=== PATIENT | female | born 1940 | race Caucasian/White ===

== ENCOUNTER → 2016-12-03 | Outpatient (CLI) | payer MEDICARE ==
[2016-12-03 14:24] LABS: ALT 39 U/L (9-52); AST 37 U/L (14-36); Anion Gap 13 mmol/L; Blood Urea Nitrogen 14 mg/dL (7-17); Calcium 9.7 mg/dL (8.4-10.2); Carbon Dioxide 24 mmol/L (22-30); Chloride 104 mmol/L (98-107); Glucose 157 mg/dL (74-99); Non-African American GFR(MDRD) 56 (>60 ml/min/1.73 sqM); Potassium 4.6 mmol/L (3.5-5.1); Sodium 141 mmol/L (137-145)
[2016-12-03 19:30] LABS: Hemoglobin A1C 6.3 % (4.2-6.1)
== END | disposition home or self-care (01) ==
LOC: LABWHC1 12:51
PROVIDERS: ATTEND Internal Medicine
DX: E11.9 Type 2 diabetes mellitus without complications (principal); E87.8 Other disorders of electrolyte and fluid balance, not elsewhere classified; E78.5 Hyperlipidemia, unspecified; I10 Essential (primary) hypertension
CPT/HCPCS: 36415; 80048; 83036; 84450; 84460

== ENCOUNTER → 2017-09-08 | Outpatient (CLI) | payer MEDICARE ==
[2017-09-08 12:37] LABS: ALT 45 U/L (9-52); AST 35 U/L (14-36); Alkaline Phosphatase 64 U/L (38-126); Anion Gap 11 mmol/L; Blood Urea Nitrogen 18 mg/dL (7-17); Calcium 9.7 mg/dL (8.4-10.2); Carbon Dioxide 24 mmol/L (22-30); Chloride 109 mmol/L (98-107); GGT 47 U/L (12-43); Glucose 155 mg/dL (74-99); Magnesium 2.2 mg/dL (1.6-2.3); Non-African American GFR(MDRD) 54 (>60 ml/min/1.73 sqM); Sodium 144 mmol/L (137-145); Total Bilirubin 0.9 mg/dL (0.2-1.3); Total Protein 6.8 g/dL (6.3-8.2)
== END | disposition home or self-care (01) ==
LOC: LABWHC1 11:23
PROVIDERS: ATTEND Internal Medicine
DX: E55.9 Vitamin D deficiency, unspecified (principal); E11.9 Type 2 diabetes mellitus without complications; M10.9 Gout, unspecified
CPT/HCPCS: 36415; 80053; 82306; 82977; 83036; 83735

== ENCOUNTER → 2018-01-30 | Outpatient (CLI) | payer MEDICARE ==
[2018-01-30 12:57] LABS: Calcium 9.7 mg/dL (8.4-10.2); Potassium 4.1 mmol/L (3.5-5.1)
[2018-01-30 17:19] LABS: Hemoglobin A1C 6.5 % (4.0-6.0)
== END | disposition home or self-care (01) ==
LOC: LABWHC1 12:21
PROVIDERS: ATTEND Internal Medicine
DX: E11.9 Type 2 diabetes mellitus without complications (principal)
CPT/HCPCS: 36415; 80048; 83036

== ENCOUNTER → 2018-02-11 | Outpatient (CLI) | payer MEDICARE ==
--- NOTE | 2018-02-13 09:10 | MM ---
Reason for exam: screening (asymptomatic). Last mammogram was performed 1 year and 5 months ago. History: Patient is postmenopausal. Family history of breast cancer in maternal cousin. Benign right mammotome panel of the right breast, November 17, 2009. Took estrogen for 1 year 6 months. Physical Findings: A clinical breast exam by your physician is recommended on an annual basis and results should be correlated with mammographic findings. MG 3D Screening Mammo W/Cad Bilateral CC and MLO view(s) were taken. Prior study comparison: September 09, 2016, bilateral MG 3d screening mammo w/cad. May 08, 2015, bilateral MG screening mammo w CAD. There are scattered fibroglandular densities. Stable benign calcifications. There is no discrete abnormality. No significant changes when compared with prior studies. ASSESSMENT: Benign, BI-RAD 2 RECOMMENDATION: Routine screening mammogram of both breasts in 1 year.
== END | disposition home or self-care (01) ==
LOC: RADMAMWWP 14:12
PROVIDERS: ATTEND Internal Medicine
DX: Z12.31 Encounter for screening mammogram for malignant neoplasm of breast (principal); Z80.3 Family history of malignant neoplasm of breast
CPT/HCPCS: 77063; 77067

== ENCOUNTER → 2018-06-02 | Outpatient (CLI) | payer MEDICARE ==
[~2018-06-02] MED LIST: REGADENOSON 0.4 MG/5 ML SYRINGE IV ONE
--- NOTE | 2018-06-02 12:50 | NM ---
EXAMINATION TYPE: NM stress lexiscan cardiolite DATE OF EXAM: 06/02/2018 COMPARISON: NONE HISTORY: Chest pain TECHNIQUE: After the intravenous administration of 10.35 mCi Tc 99m Sestamibi - Cardiolite resting S PECT images acquired 45 minutes post injection. The patient received 0.4mg Lexiscan, 23.1 mCi Tc 99m Sestamibi - Stress images obtained [address] injection FINDINGS: Review of stress and rest SPECT images demonstrates no distinct perfusion abnormality. Gated analysi s shows normal wall motion with an estimated left ventricular ejection fraction of 94 %. IMPRESSION: No scintigraphic evidence for reversible ischemia.
--- NOTE | 2018-06-02 13:14 | EST ---
EXERCISE STRESS DATE OF SERVICE: 06/02/2018 AGE: 77 SEX: Female HT: 5'6" WT: 209 pounds PROTOCOL: Lexiscan Cardiolite STAGE: DURATION OF EXERCISE: HEART RATE REST: 90 BLOOD PRESSURE REST: 151/78 MAXIMUM HEART RATE ACHIEVED: 119 MAXIMUM BLOOD PRESSURE: 172/88 85% MPHR: 122 100% MPHR: 143 METS: INDICATIONS: Chest pain. CLINICAL INFORMATION: Baseline rhythm is sinus mechanism, rate of 90, normal axis and intervals nonspecific ST-T wave changes. Baseline blood pressure 151/78 mmHg. Patient received an injection of Lexiscan. Electrocardiographic monitoring revealed no evidence of diagnostic ischemic ST deviation. Cardiolite was injected per protocol. CONCLUSION: 1. Nondiagnostic electrocardiograph stress testing. 2. Nuclear images will be reported separately. MMODL / IJN: [id number] /
== END | disposition home or self-care (01) ==
LOC: RADNMMAIN 09:11
PROVIDERS: ATTEND Internal Medicine
DX: R06.02 Shortness of breath (principal); R07.89 Other chest pain
CPT/HCPCS: 93017; 78452; A9500; J2785

== ENCOUNTER → 2018-06-09 | Outpatient (CLI) | payer MEDICARE ==
--- NOTE | 2018-06-09 14:53 | XR ---
EXAMINATION TYPE: XR chest 2V DATE OF EXAM: 06/09/2018 COMPARISON: 11/26/2013 INDICATION: Short of breath x2 weeks TECHNIQUE: Frontal and lateral views of the chest are obtained. FINDINGS: The heart size is normal. The pulmonary vasculature is normal. The lungs are clear. IMPRESSION: 1. No acute pulmonary process.
== END | disposition home or self-care (01) ==
LOC: RADXRMAIN 14:30
PROVIDERS: ATTEND Internal Medicine
DX: R06.02 Shortness of breath (principal)
CPT/HCPCS: 71046

== ENCOUNTER → 2018-12-07 | Outpatient (CLI) | payer MEDICARE ==
--- NOTE | 2018-12-07 11:13 | XR ---
EXAMINATION TYPE: XR chest 2V DATE OF EXAM: 12/07/2018 COMPARISON: 06/09/2018 TECHNIQUE: PA and lateral views submitted. HISTORY: Cough FINDINGS: The lungs are clear and there is no pneumothorax, pleural effusion, or focal pneumonia. Arthropathy of the shoulders. Heart size normal. Atherosclerotic change aorta. Biapical pleural thickening. No o vert failure. Hypertrophic and degenerative change of the spine. Surgical abdomen. No overt failure. IMPRESSION: 1. No acute process.
[2018-12-07 11:33] LABS: Basophils % (A) 1 %; Eosinophils # (A) 0.2 k/uL (0-0.7); Eosinophils % (A) 4 %; HCT 45.3 % (34.0-46.0); HGB 14.2 gm/dL (11.4-16.0); Lymphocytes # (A) 1.2 k/uL (1.0-4.8); Lymphocytes % (A) 29 %; MCH 29.1 pg (25.0-35.0); MCHC 31.3 g/dL (31.0-37.0); MCV 92.9 fL (80.0-100.0); Mean Platelet Volume 6.9; Monocytes # (A) 0.3 k/uL (0-1.0); Monocytes % (A) 6 %; Neutrophils # (A) 2.4 k/uL (1.3-7.7); Neutrophils % (A) 59 %; Platelet Count 159 k/uL (150-450); RBC 4.88 m/uL (3.80-5.40); WBC 4.1 k/uL (3.8-10.6)
== END | disposition home or self-care (01) ==
LOC: RADXRMAIN 10:34
PROVIDERS: ATTEND Internal Medicine
DX: J40 Bronchitis, not specified as acute or chronic (principal); J11.1 Influenza due to unidentified influenza virus with other respiratory manifestations; J18.9 Pneumonia, unspecified organism
CPT/HCPCS: 36415; 71046; 85025; 87502

== ENCOUNTER → 2019-08-27 | Outpatient (CLI) | payer MEDICARE ==
[2019-08-27 14:39] LABS: Basophils % (A) 1 %; Eosinophils # (A) 0.1 k/uL (0-0.7); Eosinophils % (A) 2 %; HCT 45.5 % (34.0-46.0); HGB 15.1 gm/dL (11.4-16.0); Lymphocytes # (A) 1.7 k/uL (1.0-4.8); Lymphocytes % (A) 31 %; MCHC 33.2 g/dL (31.0-37.0); MCV 93.3 fL (80.0-100.0); Mean Platelet Volume 6.4; Monocytes # (A) 0.3 k/uL (0-1.0); Monocytes % (A) 6 %; Neutrophils # (A) 3.1 k/uL (1.3-7.7); Neutrophils % (A) 58 %; Platelet Count 203 k/uL (150-450); RBC 4.88 m/uL (3.80-5.40); RDW 13.6 % (11.5-15.5); WBC 5.3 k/uL (3.8-10.6)
[2019-08-27 18:26] LABS: African American GFR (CKD) 62.5 (60.0-200.0); Albumin 4.3 g/dL (3.80-4.90); Albumin/Globulin Ratio 2.26 (1.60-3.17); Anion Gap 8.9 mmol/L (4.00-12.00); Calcium 9.3 mg/dL (8.7-10.3); Carbon Dioxide 26.1 mmol/L (21.6-31.8); Globulin 1.9 g/dL (1.6-3.3); Potassium 4.1 mmol/L (3.5-5.5); Total Bilirubin 0.8 mg/dL (0.2-1.2); Total Protein 6.2 g/dL (6.2-8.2)
[2019-08-27 19:21] LABS: Gliadin AB IgA, Deaminated NEGATIVE (NEGATIVE); Gliadin AB IgA, Unit <0.2 U/mL; Gliadin AB IgG, Deaminated NEGATIVE (NEGATIVE)
== END | disposition home or self-care (01) ==
LOC: LABWHC1 13:54
PROVIDERS: ATTEND Internal Medicine
DX: R10.9 Unspecified abdominal pain (principal)
CPT/HCPCS: 36415; 80053; 82150; 83516; 83690; 85025

== ENCOUNTER → 2020-03-24 | Outpatient (CLI) | payer MEDICARE ==
[2020-03-24 12:58] LABS: Basophils # (A) 0.1 k/uL (0-0.2); Basophils % (A) 1 %; Eosinophils # (A) 0.2 k/uL (0-0.7); Eosinophils % (A) 3 %; HGB 14.1 gm/dL (11.4-16.0); Lymphocytes # (A) 1.7 k/uL (1.0-4.8); Lymphocytes % (A) 31 %; MCH 29.4 pg (25.0-35.0); MCHC 31.3 g/dL (31.0-37.0); MCV 93.8 fL (80.0-100.0); Mean Platelet Volume 8.9; Monocytes # (A) 0.3 k/uL (0-1.0); Monocytes % (A) 6 %; Neutrophils # (A) 3.2 k/uL (1.3-7.7); Neutrophils % (A) 57 %; Platelet Count 176 k/uL (150-450); RDW 13.5 % (11.5-15.5); WBC 5.6 k/uL (3.8-10.6)
[2020-03-24 13:47] LABS: Erythrocyte Sedimentation Rate 11 mm/hr (0-20)
[2020-03-24 18:46] LABS: African American GFR (CKD) 49.8 (60.0-200.0); Albumin 4.2 g/dL (3.80-4.90); Albumin/Globulin Ratio 2.1 (1.60-3.17); Anion Gap 9.6 mmol/L (4.00-12.00); BUN/Creat Ratio 20.83 Ratio (12.00-20.00); C Reactive Protein 0.7 mg/dL (0.0-0.8); Calcium 9.4 mg/dL (8.7-10.3); Carbon Dioxide 28.4 mmol/L (21.6-31.8); Chol/HDL Ratio 4.5; LDL Cholesterol,Calculated 68.2 mg/dL (0.0-131.0); Non-African American GFR(CKD) 42.9 (60.0-200.0); Potassium 4.4 mmol/L (3.5-5.5); Total Bilirubin 0.9 mg/dL (0.3-1.2); Total Protein 6.2 g/dL (6.2-8.2); VLDL Calculation 78.8 mg/dL (5.00-40.00)
[2020-03-24 19:53] LABS: Hemoglobin A1C 7.7 % (4.0-6.0)
== END | disposition home or self-care (01) ==
LOC: LABWHC1 12:13
PROVIDERS: ATTEND Internal Medicine
DX: D64.9 Anemia, unspecified (principal); I10 Essential (primary) hypertension; E78.5 Hyperlipidemia, unspecified; E11.65 Type 2 diabetes mellitus with hyperglycemia; E55.9 Vitamin D deficiency, unspecified; J45.909 Unspecified asthma, uncomplicated
CPT/HCPCS: 36415; 80053; 80061; 82306; 82550; 83036; 84443; 85025; 85652; 86140

== ENCOUNTER 2020-06-20 06:44 | Day surgery (SDC) | payer MEDICARE ==
[2020-06-15 16:26] VITALS: BMI 31.3
[~2020-06-20 06:44] MED LIST changes: +LACTATED RINGERS 1,000 ML IV SCH; +LIDOCAINE 1% (10MG/ML) FOR IV START INTRADERMA PRN; -REGADENOSON 0.4 MG/5 ML SYRINGE IV ONE
[2020-06-20 07:07] VITALS: TEMP 97.4
[2020-06-20 07:23] LABS: Glucose,Whole Blood 223 mg/dL (75-99)
[2020-06-20] MEDS ORDERED: ONDANSETRON 4 MG/2 ML VIAL ONE (07:24)
[2020-06-20] MEDS ORDERED: PROPOFOL 10 MG/ML 20 ML VIAL IV ONE (07:35)
[2020-06-20] MEDS ORDERED: LIDOCAINE 1% INJ 10MG/ML (20 ML MDV) ONE (07:35)
[2020-06-20 08:02] VITALS: RESP 18
--- NOTE | 2020-06-20 08:04 | P.PCN ---
Date of Procedure: 06/20/20 Description of Procedure: BRIEF HISTORY: Patient is a 79-year-old female presenting for outpatient EGD for evaluation of GERD and abdominal pain. Patient had Protonix increased to twice daily. In addition when seen outpatient setting she was given dietary modifications as well as initiated on MiraLAX therapy. PROCEDURE PERFORMED: Esophagogastroduodenoscopy with biopsy. PREOPERATIVE DIAGNOSIS: GERD. ESTIMATED BLOOD LOSS: Minimal. IV sedation per anesthesia. PROCEDURE: After informed consent was obtained, the patient was brought into the endoscopy unit. IV sedation was administered by Anesthesia under continuous monitoring. Initially the Olympus GIF-190 video endoscope was inserted into the mouth. Esophagus intubated without any difficulty. It was gradually advanced into the stomach and duodenum and carefully examined. The bulb and the second part of the duodenum appeared normal, with biopsies taken. The scope at this time was withdrawn to the stomach, adequately insufflated with air, and upon careful examination, mucosa of the antrum, body, cardia and the fundus appeared normal grossly normal except for some mild scattered erythema suggestive of mild gastritis with biopsies of the antrum and body taken. There was small amount food noted throughout the entire stomach prohibiting complete visualization of the mucosa. The scope was then withdrawn into the esophagus. The GE junction was located at 39 cm from the incisors, with biopsies taken. The midesophagus was also biopsied to rule out eosinophilic esophagitis. The esophagus appeared normal. There were no erosions or ulcerations seen and the patient tolerated the procedure well. IMPRESSION: 1. Mild gastritis. 2. Small amounts of retained food debris in the stomach. 3. Biopsies of the duodenum, antrum body, GE junction and mid esophagus. RECOMMENDATIONS: The findings of this examination were discussed with the patient. Okay to resume diet. Okay to resume medications. Continue PPI therapy. Await pathology from biopsies. Follow up in GI clinic as previously scheduled.
[2020-06-20 08:14] VITALS: BP 105/52; PULSE 68
== END 2020-06-20 08:33 | disposition home or self-care (01) ==
LOC: ORWHC2ENDO 06:44
PROVIDERS: ATTEND Internal Medicine
DX: K29.50 Unspecified chronic gastritis without bleeding (principal); K21.9 Gastro-esophageal reflux disease without esophagitis; Z88.2 Allergy status to sulfonamides; Z88.0 Allergy status to penicillin; Z88.8 Allergy status to other drugs, medicaments and biological substances; I10 Essential (primary) hypertension; E78.5 Hyperlipidemia, unspecified; E11.9 Type 2 diabetes mellitus without complications; G43.909 Migraine, unspecified, not intractable, without status migrainosus; Z79.82 Long term (current) use of aspirin; Z79.899 Other long term (current) drug therapy; Z90.49 Acquired absence of other specified parts of digestive tract; Z90.89 Acquired absence of other organs; Z98.41 Cataract extraction status, right eye; Z98.42 Cataract extraction status, left eye
CPT/HCPCS: 88305; 43239; J2405; J2001; J2704

== ENCOUNTER → 2020-11-14 | Outpatient (CLI) | payer MEDICARE ==
[2020-11-14 19:53] LABS: African American GFR (CKD) 55.3 (60.0-200.0); Albumin 4.4 g/dL (3.80-4.90); Albumin/Globulin Ratio 2.44 (1.60-3.17); Anion Gap 10.3 mmol/L (4.00-12.00); BUN/Creat Ratio 16.36 Ratio (12.00-20.00); Calcium 9.5 mg/dL (8.7-10.3); Carbon Dioxide 25.7 mmol/L (21.6-31.8); Chol/HDL Ratio 4.41; Globulin 1.8 g/dL (1.6-3.3); LDL Cholesterol,Calculated 80.8 mg/dL (0.0-131.0); Non-African American GFR(CKD) 47.7 (60.0-200.0); Potassium 4.6 mmol/L (3.5-5.5); Total Protein 6.2 g/dL (6.2-8.2); VLDL Calculation 69.2 mg/dL (5.00-40.00)
[2020-11-14 22:09] LABS: Hemoglobin A1C 8.1 % (4.0-6.0)
[2020-11-15 03:44] LABS: Urine Creatinine 246.8 mg/dL
== END | disposition home or self-care (01) ==
LOC: LABWHC1 13:07
PROVIDERS: ATTEND Internal Medicine Endocrinology, Diabetes & Metabolism
DX: E11.65 Type 2 diabetes mellitus with hyperglycemia (principal)
CPT/HCPCS: 36415; 80053; 80061; 82043; 82570; 83036; 84443

== ENCOUNTER → 2021-07-16 | Outpatient (CLI) | payer MEDICARE ==
[2021-07-16 18:53] LABS: Basophils # (A) 0.04 X 10*3/uL (0.00-0.10); Basophils % (A) 0.7 %; Eosinophils # (A) 0.12 X 10*3/uL (0.04-0.35); HGB 14.7 g/dL (12.0-15.0); Lymphocytes # (A) 1.77 X 10*3/uL (0.90-5.00); Lymphocytes % (A) 29.8 %; MCH 30.2 pg (27.0-32.0); MCV 94.7 fL (80.0-97.0); Monocytes # (A) 0.48 X 10*3/uL (0.20-1.00); Monocytes % (A) 8.1 %; Neutrophils # (A) 3.52 X 10*3/uL (1.80-7.70); Neutrophils % (A) 59.2 %; Platelet Count 183 X 10*3/uL (140-440); RBC 4.86 X 10*6/uL (4.10-5.20); RDW 13.5 % (11.5-14.5); WBC 5.94 X 10*3/uL (4.50-10.00)
[2021-07-16 21:18] LABS: Erythrocyte Sedimentation Rate 9 mm/Hr (0-30)
[2021-07-17 22:46] LABS: C Reactive Protein 0.5 mg/dL (0.00-0.80); Chol/HDL Ratio 4.61 Ratio; HDL Cholesterol 45.3 mg/dL (40.00-60.00); LDL Cholesterol,Calculated 89.1 mg/dL (0.0-131.0); Uric Acid 4.4 mg/dL (2.9-7.7); VLDL Calculation 74.6 mg/dL (5.00-40.00)
[2021-07-18 07:39] LABS: African American GFR (CKD) 88.7 (60.0-200.0); Albumin 4.3 g/dL (3.8-4.9); Albumin/Globulin Ratio 1.92 (1.60-3.17); Anion Gap 18.8 mmol/L (4.00-12.00); BUN/Creat Ratio 27.43 Ratio (12.00-20.00); Blood Urea Nitrogen 20.3 mg/dL (9.0-27.0); Calcium 9.9 mg/dL (8.7-10.3); Carbon Dioxide 20.2 mmol/L (21.6-31.8); Globulin 2.2 g/dL (1.6-3.3); Non-African American GFR(CKD) 76.5 (60.0-200.0); Potassium 4.3 mmol/L (3.5-5.5); Total Bilirubin 0.5 mg/dL (0.30-1.20); Total Protein 6.5 g/dL (6.2-8.2)
[2021-07-18 11:15] LABS: Microalbumin Creatinine Ratio <30 mg/g Creat (0-30)
== END | disposition home or self-care (01) ==
LOC: LABWHC1 14:02
PROVIDERS: ATTEND Internal Medicine Endocrinology, Diabetes & Metabolism
DX: Z00.00 Encounter for general adult medical examination without abnormal findings (principal); E78.5 Hyperlipidemia, unspecified; E03.9 Hypothyroidism, unspecified; E55.9 Vitamin D deficiency, unspecified; E11.22 Type 2 diabetes mellitus with diabetic chronic kidney disease; E11.65 Type 2 diabetes mellitus with hyperglycemia; D63.1 Anemia in chronic kidney disease; M10.9 Gout, unspecified; N18.30 Chronic kidney disease, stage 3 unspecified
CPT/HCPCS: 36415; 80053; 80061; 82043; 82306; 82550; 82570; 83036; 83735; 84443; 84550; 85025; 85652; 86140

== ENCOUNTER → 2022-05-28 | Outpatient (CLI) | payer MEDICARE ==
[2022-05-28 18:41] LABS: ALT 15 U/L (8-44); AST 24 U/L (13-35); African American GFR (CKD) 40.7 (60.0-200.0); Albumin 4.3 g/dL (3.8-4.9); Albumin/Globulin Ratio 1.59 (1.60-3.17); Alkaline Phosphatase 50 U/L (41-126); BUN/Creat Ratio 19.36 Ratio (12.00-20.00); Blood Urea Nitrogen 27.1 mg/dL (9.0-27.0); Calcium 9.6 mg/dL (8.7-10.3); Carbon Dioxide 23.4 mmol/L (20.0-27.5); Chloride 102 mmol/L (96-109); Chol/HDL Ratio 2.64 Ratio; Globulin 2.7 g/dL (1.6-3.3); Glucose 184 mg/dL (70-110); LDL Cholesterol,Calculated 37.1 mg/dL (0.0-131.0); Non-African American GFR(CKD) 35.1 (60.0-200.0); Potassium 2.9 mmol/L (3.5-5.5); Sodium 143 mmol/L (135-145)
== END | disposition home or self-care (01) ==
LOC: LABWHC1 13:54
PROVIDERS: ATTEND Internal Medicine Endocrinology, Diabetes & Metabolism
DX: E11.65 Type 2 diabetes mellitus with hyperglycemia (principal)
CPT/HCPCS: 36415; 80053; 80061; 82043; 82570; 83036; 84443

== ENCOUNTER → 2022-06-18 | Outpatient (CLI) | payer MEDICARE ==
--- NOTE | 2022-06-20 21:26 | US ---
EXAMINATION TYPE: US kidneys/renal and bladder DATE OF EXAM: 06/19/2022 COMPARISON: NONE CLINICAL HISTORY: N28.9 KNOWN RENAL DISEASE CKD III. CKD EXAM MEASUREMENTS: Right Kidney: 11.0 x 5.4 x 5.2 cm Left Kidney: 10.8 x 4.8 x 4.2 cm Right Kidney: no evidence of hydronephrosis. cortical thinning Left Kidney: no evidence of hydronephrosis. cortical thinning Bladder: wnl, sonolucent Bilateral Jets seen: no IMPRESSION: 1. No acute changes renal ultrasound
== END | disposition home or self-care (01) ==
LOC: RADUSWWP 21:26
PROVIDERS: ATTEND Internal Medicine
DX: N18.30 Chronic kidney disease, stage 3 unspecified (principal); N28.9 Disorder of kidney and ureter, unspecified
CPT/HCPCS: 76770

== ENCOUNTER → 2022-06-18 | Outpatient (CLI) | payer MEDICARE ==
--- NOTE | 2022-06-20 21:37 | XR ---
Lumbar spine HISTORY: Disc disease 3 views the lumbar spine, no comparisons There is a dextroscoliosis centered at the mid lumbar spine with rotatory component. Bone mineralizat ion is reduced. Lumbar vertebral bodies show preserved height. There is multilevel spondylosis. Loss of disc height is present at intervertebral levels at T12-L1, L1-2, L2-3 and L3-4. Sclerosis in the p osterior elements is consistent with facet arthropathy. Sacroiliac joints are intact. Surgical clips are present in the right upper quadrant. IMPRESSION: Osteopenia, scoliosis, degenerative disc disease and facet arthropathy.
--- NOTE | 2022-06-20 21:39 | XR ---
EXAMINATION TYPE: XR chest 2V DATE OF EXAM: 06/19/2022 COMPARISON: Chest x-ray 12/07/2018 HISTORY: Shortness of breath TECHNIQUE: Frontal and lateral views of the chest are obtained. FINDINGS: There is no focal air space opacity, pleural effusion, or pneumothorax seen. The cardiac silhouette size is within normal limits. Prominent lung volume could be indicative of underlying COPD . Aorta is dense. Surgical clips are present in the right upper quadrant. The osseous structures are intact. IMPRESSION: No acute cardiopulmonary process.
== END | disposition home or self-care (01) ==
LOC: RADXRMAIN 14:30
PROVIDERS: ATTEND Internal Medicine
DX: M51.36 Other intervertebral disc degeneration, lumbar region (principal); M47.816 Spondylosis without myelopathy or radiculopathy, lumbar region; M85.88 Other specified disorders of bone density and structure, other site; M41.86 Other forms of scoliosis, lumbar region; R06.02 Shortness of breath
CPT/HCPCS: 71046; 72100

== ENCOUNTER → 2022-06-21 | Outpatient (CLI) | payer MEDICARE ==
[2022-06-21 22:45] LABS: African American GFR (CKD) 44.6 (60.0-200.0); BUN/Creat Ratio 17.15 Ratio (12.00-20.00); Blood Urea Nitrogen 22.3 mg/dL (9.0-27.0); Calcium 9.9 mg/dL (8.7-10.3); Non-African American GFR(CKD) 38.4 (60.0-200.0); Potassium 4.1 mmol/L (3.5-5.5)
== END | disposition home or self-care (01) ==
LOC: LABWHC1 14:53
PROVIDERS: ATTEND Internal Medicine
DX: E87.8 Other disorders of electrolyte and fluid balance, not elsewhere classified (principal); E87.6 Hypokalemia
CPT/HCPCS: 36415; 80048

== ENCOUNTER → 2022-07-18 | Outpatient (CLI) | payer MEDICARE ==
--- NOTE | 2022-07-18 16:49 | CT ---
EXAMINATION TYPE: CT brain wo con DATE OF EXAM: 07/18/2022 HISTORY: DIZZINESS AND FEELING OF FALLING. CT DLP: 1213 mGycm. Automated Exposure Control for Dose Reduction was Utilized. TECHNIQUE: CT scan of the head is performed without contrast. COMPARISON: None. FINDINGS: There is no acute intracranial hemorrhage or midline shift identified. There is mild diff use ventricular and sulcal prominence consistent with diffuse age-related cerebral atrophy. Sulcal pr ominence greatest over the bilateral superior frontal lobes. Alejo-white matter differentiation fairly well-maintained. No suspicious opacification of the mastoid air cells. Hyperostosis frontalis is see n. The globes are intact and the visualized sinuses are clear. IMPRESSION: No acute intracranial hemorrhage or midline shift. There is mild to moderate diffuse ce rebral atrophy greatest over the bilateral superior frontal lobes.
[2022-07-19 00:12] LABS: Rheumatoid Factor, Qnt <10 IU/mL (0-15)
[2022-07-19 00:14] LABS: Protein, Total 6.4 g/dL (6.2-8.2)
[2022-07-19 01:07] LABS: Basophils # (A) 0.02 X 10*3/uL (0.00-0.10); Basophils % (A) 0.4 %; Eosinophils # (A) 0.07 X 10*3/uL (0.04-0.35); Eosinophils % (A) 1.3 %; HCT 46.2 % (37.2-46.3); HGB 14.3 g/dL (12.0-15.0); Immature Grans, Automated 0.2 %; Lymphocytes # (A) 1.85 X 10*3/uL (0.90-5.00); Lymphocytes % (A) 33.8 %; MCH 29.6 pg (27.0-32.0); MCV 95.7 fL (80.0-97.0); Mean Platelet Volume 11.7 fL (9.5-12.2); Monocytes # (A) 0.35 X 10*3/uL (0.20-1.00); Monocytes % (A) 6.4 %; NRBC Per 100 WBC 0 /100 WBCS (0.0-0.0); Neutrophils # (A) 3.17 X 10*3/uL (1.80-7.70); Neutrophils % (A) 57.9 %; Platelet Count 180 X 10*3/uL (140-440); RBC 4.83 X 10*6/uL (4.10-5.20); RDW 15.4 % (11.5-14.5); WBC 5.47 X 10*3/uL (4.50-10.00)
[2022-07-19 01:30] LABS: Erythrocyte Sedimentation Rate 7 mm/Hr (0-30)
[2022-07-19 10:24] LABS: Anti-Smith Ab Interp NEGATIVE (NEGATIVE); Cyclic Citrull Pep IgG Unit <0.5 U/mL; Cyclic Citrullinated Pep IgG NEGATIVE (NEGATIVE); DNA Double-Stranded NEGATIVE (NEGATIVE)
[2022-07-19 12:33] LABS: Albumin 3.82 g/dL (3.80-4.90); Gamma Globulin 0.64 g/dL (0.70-1.50)
[2022-07-19 14:27] LABS: C-ANCA <1:20 Titer (<1:20)
== END | disposition home or self-care (01) ==
LOC: RADCTMAIN 15:38
PROVIDERS: ATTEND Internal Medicine
DX: G31.9 Degenerative disease of nervous system, unspecified (principal); R26.9 Unspecified abnormalities of gait and mobility; M35.9 Systemic involvement of connective tissue, unspecified; R26.89 Other abnormalities of gait and mobility; R21 Rash and other nonspecific skin eruption
CPT/HCPCS: 70450; 84165; 85025; 85652; 86038; 86039; 86160; 86162; 86200; 86225; 86235; 86255; 86334; 86335; 86431

== ENCOUNTER → 2022-08-06 | Outpatient (CLI) | payer MEDICARE ==
--- NOTE | 2022-08-07 11:50 | CA ---
Transthoracic Echo Report Name: Lesvia Matos Age: 81 Gender: F : 1940 Exam Date: 08/06/2022 13:51 Exam Location: [facility] Ht (in): 67 Wt (lb): 190 Ordering Physician: Everett Ortiz MD Attending/Referring Phys: Recreation Professor Violeta Rodney RDCS Procedure CPT: Indications: I10 HYPERTENSION, N18.30 Cardiac Hx: Technical Quality: Technically difficult study Contrast 1: Lumason Total Dose (mL): 5 Contrast 2: Total Dose (mL): MEASUREMENTS (Male / Female) Normal Values 2D ECHO LV Diastolic Diameter PLAX 3.0 cm 4.2 - 5.9 / 3.9 - 5.3 cm LV Systolic Diameter PLAX 1.9 cm IVS Diastolic Thickness 1.0 cm 0.6 - 1.0 / 0.6 - 0.9 cm LVPW Diastolic Thickness 1.1 cm 0.6 - 1.0 / 0.6 - 0.9 cm LV Relative Wall Thickness 0.7 LA Volume 27.3 cm??? 18 - 58 / 22 - 52 cm??? DOPPLER AV Peak Velocity 127.1 cm/s AV Peak Gradient 6.5 mmHg LVOT Peak Velocity 134.6 cm/s LVOT Peak Gradient 7.2 mmHg MV Area PHT 3.7 cm??? Mitral E Point Velocity 58.9 cm/s Mitral A Point Velocity 132.7 cm/s Mitral E to A Ratio 0.4 MV Deceleration Time 205.2 ms MV E' Velocity 6.2 cm/s Mitral E to MV E' Ratio 9.5 TR Peak Velocity 200.5 cm/s TR Peak Gradient 16.1 mmHg Right Ventricular Systolic Press 21.1 mmHg FINDINGS Left Ventricle Mildly increased left ventricular wall thickness. Normal left ventricular systolic function with no obvious regional wall motion abnormalities. Left ventricular ejection fraction is estimated at 55-60 %. Right Ventricle Moderate right ventricular dilatation. Right ventricular systolic pressure within normal limits. Right Atrium Right atrium not well visualized. Left Atrium Normal left atrial size. Mitral Valve No mitral stenosis. Mild mitral regurgitation. Mitral annular calcification. Aortic Valve Aortic valve not well visualized. No aortic valve stenosis or regurgitation. Tricuspid Valve Mild tricuspid regurgitation. Pulmonic Valve Pulmonic valve not well visualized. Pericardium No pericardial effusion. Aorta Normal size aortic root and proximal ascending aorta. CONCLUSIONS Patient tachycardic Normal LV systolic function RV is enlarged, mildly Previewed by: Dr. Luis Daniel Reagan MD (Electronically Signed) Final Date: 07 August 2022 11:50
== END | disposition home or self-care (01) ==
LOC: RADECHMAIN 13:36
PROVIDERS: ATTEND Internal Medicine
DX: I10 Essential (primary) hypertension (principal); N18.30 Chronic kidney disease, stage 3 unspecified
CPT/HCPCS: C8929; Q9950; 93306

== ENCOUNTER 2022-09-13 13:16 | Observation (INO) | payer MEDICARE ==
[2022-09-13 15:49] LABS: Basophils # (A) 0.1 k/uL (0-0.2); Basophils % (A) 1 %; Eosinophils # (A) 0.1 k/uL (0-0.7); Eosinophils % (A) 1 %; HCT 43.2 % (34.0-46.0); HGB 14.6 gm/dL (11.4-16.0); Lymphocytes # (A) 1.6 k/uL (1.0-4.8); Lymphocytes % (A) 25 %; MCHC 33.9 g/dL (31.0-37.0); MCV 91.4 fL (80.0-100.0); Mean Platelet Volume 9.2; Monocytes # (A) 0.4 k/uL (0-1.0); Monocytes % (A) 6 %; Neutrophils % (A) 64 %; Platelet Count 153 k/uL (150-450); RBC 4.72 m/uL (3.80-5.40); RDW 14.2 % (11.5-15.5); WBC 6.3 k/uL (3.8-10.6)
[2022-09-13 15:58] LABS: Partial Thromboplastin Time 24.3 sec (22.0-30.0); Prothrombin Time 10.2 sec (9.0-12.0)
[2022-09-13 15:59] LABS: Albumin 4.1 g/dL (3.5-5.0); Calcium 8.8 mg/dL (8.4-10.2); Potassium 3.9 mmol/L (3.5-5.1); Total Bilirubin 0.8 mg/dL (0.2-1.3); Total Protein 6.4 g/dL (6.3-8.2)
[2022-09-13] MEDS ORDERED: ASPIRIN 81 MG PO STA (18:52)
--- NOTE | 2022-09-13 19:29 | XR ---
EXAMINATION TYPE: XR chest 2V DATE OF EXAM: 09/13/2022 COMPARISON: 06/18/2022 HISTORY: Chest pain. Short of breath. TECHNIQUE: 2 views FINDINGS: There is no heart failure nor confluent pneumonic infiltrate. Heart and mediastinum are nor mal. No pleural effusion. Bony thorax is intact. IMPRESSION: No active cardiopulmonary disease. No change.
[2022-09-13 19:39] VITALS: RESP 16
[2022-09-13] MEDS ORDERED: NALOXONE 0.4 MG/ML 1 ML VIAL IV PRN (20:09)
--- NOTE | 2022-09-13 20:09 | ED ---
General Adult HPI - General Chief complaint: Arrhythmia/Palpitations Stated complaint: tachycardia, sob Time Seen by Provider: 09/13/22 18:31 Source: patient, RN notes reviewed, old records reviewed Mode of arrival: ambulatory Limitations: no limitations - History of Present Illness Initial comments: Patient is an 81-year-old female with past medical history remarkable for hypertension, GERD, cancer who presents emergency Department complaining of an episode of lightheadedness/dizziness this morning with an elevated heart rate. States her heart rate was between 140 and 160 at home based on pulse oximeter and the run able to detect blood pressure this morning with automatic blood pressure cuff at home. She states she was just resting comfortably when she suddenly had this episode. She has been having intermittent episodes like this over the last few weeks and has been seeing cardiology outpatient but is not due to see them again for multiple weeks. Has not been placed on a Holter monitor. States she felt palpitations during the episode but no chest pain. Symptoms resolved by the time she got here in the was a long delay and evaluated the patient due to high ED volumes. Denies any cough or fevers. Does endorse some mild chronic lower extremity edema. Denies any chest pain or current symptoms at this time. She states she has been having these symptoms more frequently lately. Describes some is near syncopal where she becomes lightheaded, needs to sit down has a warm flushed feeling with palpitations. It is not always asso ciated with low blood pressure or high heart rate because she does not always check it but today's was. She states they're more frequent over the last week or so after having an for the last 6 weeks on and off. No known palliative or provocative factors. Presents for further evaluation at this time. No cardiac history. No history of blood clots. Not on blood thinners.Patient states that when she is having episodes she does feel short of breath. - Related Data Home Medications Medication Instructions Recorded Confirmed ALPRAZolam [Xanax] 0.25 mg PO BID PRN 06/15/20 09/13/22 Aspirin 81 mg PO W/SUPPER 06/15/20 09/13/22 Cholecalciferol [Vitamin D3 (25 50 mcg PO DAILY 06/15/20 09/13/22 Mcg = 1000 Iu)] Glimepiride [Amaryl] 2 mg PO BID-W/MEALS 06/15/20 09/13/22 Melatonin [Melatonin ER] 10 mg PO HS 06/15/20 09/13/22 Metoprolol Succinate (ER) [Toprol 50 mg PO DAILY 06/15/20 09/13/22 Xl] Naproxen Sodium [Aleve] 220 mg PO Q12H PRN 06/15/20 09/13/22 Pantoprazole Sodium [Protonix] 40 mg PO BID-W/MEALS 06/15/20 09/13/22 Triamterene-Hctz 37.5-25Mg 0.5 tab PO DAILY PRN 06/15/20 09/13/22 [Maxzide 37.5-25] polyethylene glycoL 3350 [Miralax] 17 gm PO DAILY PRN 06/15/20 09/13/22 Calcium Carbonate [Calcium] 600 mg PO DAILY 09/13/22 09/13/22 Fish Oil 1400mg 1 cap PO DAILY 09/13/22 09/13/22 Ipratropium [place] [Ipratropium 1 spray EA NOSTRIL BID 09/13/22 09/13/22 [place] 0.03%] Multivit-Min/FA/Lycopen/Lutein 1 tab PO DAILY 09/13/22 09/13/22 [Centrum Silver Tablet] Rosuvastatin Calcium [Crestor] 40 mg PO HS 09/13/22 09/13/22 Allergies Allergy/AdvReac Type Severity Reaction Status Date / Time amoxicillin [From Augmentin] Allergy Diarrhea Verified 09/13/22 20:19 clavulanic acid Allergy Diarrhea Verified 09/13/22 20:19 [From Augmentin] fenofibrate Allergy Nausea, Verified 09/13/22 20:19 HEADACHE linagliptin [From Tradjenta] Allergy Itching Verified 09/13/22 20:19 metformin [From Janumet] Allergy DIZZY Verified 09/13/22 20:19 FEELING" sitagliptin [From Januvia] Allergy DIZZY Verified 09/13/22 20:19 FEELING Sulfa (Sulfonamide Allergy Swelling Verified 09/13/22 20:19 Antibiotics) telmisartan [From Micardis] Allergy DIZZY Verified 09/13/22 20:19 Review of Systems ROS Statement: Those systems with pertinent positive or pertinent negative responses have been documented in the HPI. Review of Systems: CONST: Denies fever EYES: Denies blurry vision ENT: Denies nasal congestion C/V: Denies Chest pain RESP: Denies shortness of breath GI: Denies abdominal pain : Denies dysuria SKIN: Denies rash. MSK: Denies joint pain. NEURO: Denies headache ROS Other: All systems not noted in ROS Statement are negative. Past Medical History Past Medical History: Cancer, GERD/Reflux, Hyperlipidemia, Hypertension Additional Past Medical History / Comment(s): MIGRAINE HEADACHES, SKIN CANCER History of Any Multi-Drug Resistant Organisms: None Reported Past Surgical History: Cholecystectomy, Hysterectomy, Tonsillectomy Additional Past Surgical History / Comment(s): CATARACT WITH LENS IMPLANTS-TAMIA ATERAL, BILATERAL EYE LID SURGERY, LESION REMOVED FROM LEFT ARM Past Anesthesia/Blood Transfusion Reactions: Postoperative Nausea & Vomiting (PONV) Past Psychological History: Anxiety, Depression Smoking Status: Never smoker Past Alcohol Use History: None Reported Past Drug Use History: None Reported - Past Family History Mother Family Medical History: No Reported History General Exam - General Exam Comments Initial Comments: General: Appears in no acute distress. HEAD: Normal with no signs of head trauma. EYES: PERRLA, EOMI, conjunctiva normal, no discharge. ENT: Hearing grossly intact, normal oropharynx. RESPIRATORY: Clear breath sounds bilaterally. No wheezes, rales, or rhonchi. No respiratory distress. No hypoxia. C/V: Regular rate and rhythm. S1 and S2 auscultated, no edema, peripheral pulses 2+ and intact throughout ABD: Abd is soft, nontender, nondistended EXT: Normal range of motion, no obvious deformity SKIN: No rashes or lesions observed on exposed skin. NEURO: Alert and oriented 4. Limitations: no limitations Course Vital Signs 09/13/22 09/13/22 13:36 19:37 Temperature 98.5 F Pulse Rate 103 H 88 Pulse Rate [ 88 Apical] Respiratory 20 16 Rate Blood Pressure 144/90 134/77 O2 Sat by Pulse 99 98 Oximetry Medical Decision Making - Medical Decision Making Based on the patient's presentation and physical exam, and appears she is having near syncopal episodes of possible arrhythmias at home intermittently that of been more frequent over the last few months. I'm concerned for possible cardiac etiology at this time including arrhythmia, ACS. Cannot rule out PE at this time either. She is currently asymptomatic. 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 Patient's vital signs within acceptable limits. We will obtain cardiac labs. She was in agreement with this plan. She was given an aspirin. EKG showed no signs of acute ischemia. Chest x-ray as interpreted by myself reveals no acute cardio primary process. No infiltrate. Laboratory studies are remarkable for an initial indeterminate troponin. Patient was evaluated after the initial laboratory studies and we will obtain repeat 3 hour troponin addition to d-dimer and BNP. She was in agreement this plan. BNP was within acceptable limits for the patient's age. Repeat troponin was once again indeterminant but slightly higher at 0.016. Patient's age-adjusted d-dimer is within acceptable limits. On reevaluation, patient remains asymptomatic. She is not due to follow-up with a automotive instructor for multiple weeks and her having any symptoms, as well as a noted tachycardia at home on pulse ox, I recommended observation admission to a telemetry bed for monitoring. She was in agreement with this plan. I did speak with the patient's PCP admitting doctor, Dr. Ortiz who accepted the admission. Cardiology was consulted. Echo was ordered. - Lab Data Result diagrams: 09/13/22 15:25 09/13/22 15:25 Lab Results 09/13/22 09/13/22 09/13/22 Range/Units 15:25 15:25 15:25 WBC 6.3 (3.8-10.6) k/uL RBC 4.72 (3.80-5.40) m/uL Hgb 14.6 (11.4-16.0) gm/dL Hct 43.2 (34.0-46.0) % MCV 91.4 (80.0-100.0) fL MCH 31.0 (25.0-35.0) pg MCHC 33.9 (31.0-37.0) g/dL RDW 14.2 (11.5-15.5) % Plt Count 153 (150-450) k/uL MPV 9.2 Neutrophils % 64 % Lymphocytes % 25 % Monocytes % 6 % Eosinophils % 1 % Basophils % 1 % Neutrophils # 4.0 (1.3-7.7) k/uL Lymphocytes # 1.6 (1.0-4.8) k/uL Monocytes # 0.4 (0-1.0) k/uL Eosinophils # 0.1 (0-0.7) k/uL Basophils # 0.1 (0-0.2) k/uL PT 10.2 (9.0-12.0) sec INR 1.0 (<1.2) APTT 24.3 (22.0-30.0) sec D-Dimer (<0.60) mg/L FEU Sodium 140 (137-145) mmol/L Potassium 3.9 (3.5-5.1) mmol/L Chloride 111 H (98-107) mmol/L Carbon Dioxide 19 L (22-30) mmol/L Anion Gap 10 mmol/L BUN 20 H (7-17) mg/dL Creatinine 1.07 H (0.52-1.04) mg/dL Est GFR (CKD-EPI)AfAm 57 (>60 ml/min/1.73 sqM) Est GFR (CKD-EPI)NonAf 49 (>60 ml/min/1.73 sqM) Glucose 265 H (74-99) mg/dL Calcium 8.8 (8.4-10.2) mg/dL Total Bilirubin 0.8 (0.2-1.3) mg/dL AST 26 (14-36) U/L ALT 22 (4-34) U/L Alkaline Phosphatase 65 (38-126) U/L Troponin I (0.000-0.034) ng/mL NT-Pro-B Natriuret Pep pg/mL Total Protein 6.4 (6.3-8.2) g/dL Albumin 4.1 (3.5-5.0) g/dL 09/13/22 09/13/22 09/13/22 Range/Units 15:25 18:58 18:58 WBC (3.8-10.6) k/uL RBC (3.80-5.40) m/uL Hgb (11.4-16.0) gm/dL Hct (34.0-46.0) % MCV (80.0-100.0) fL MCH (25.0-35.0) pg MCHC (31.0-37.0) g/dL RDW (11.5-15.5) % Plt Count (150-450) k/uL MPV Neutrophils % % Lymphocytes % % Monocytes % % Eosinophils % % Basophils % % Neutrophils # (1.3-7.7) k/uL Lymphocytes # (1.0-4.8) k/uL Monocytes # (0-1.0) k/uL Eosinophils # (0-0.7) k/uL Basophils # (0-0.2) k/uL PT (9.0-12.0) sec INR (<1.2) APTT (22.0-30.0) sec D-Dimer 0.70 H (<0.60) mg/L FEU Sodium (137-145) mmol/L Potassium (3.5-5.1) mmol/L Chloride (98-107) mmol/L Carbon Dioxide (22-30) mmol/L Anion Gap mmol/L BUN (7-17) mg/dL Creatinine (0.52-1.04) mg/dL Est GFR (CKD-EPI)AfAm (>60 ml/min/1.73 sqM) Est GFR (CKD-EPI)NonAf (>60 ml/min/1.73 sqM) Glucose (74-99) mg/dL Calcium (8.4-10.2) mg/dL Total Bilirubin (0.2-1.3) mg/dL AST (14-36) U/L ALT (4-34) U/L Alkaline Phosphatase (38-126) U/L Troponin I 0.013 0.016 (0.000-0.034) ng/mL NT-Pro-B Natriuret Pep pg/mL Total Protein (6.3-8.2) g/dL Albumin (3.5-5.0) g/dL 09/13/22 Range/Units 18:58 WBC (3.8-10.6) k/uL RBC (3.80-5.40) m/uL Hgb (11.4-16.0) gm/dL Hct (34.0-46.0) % MCV (80.0-100.0) fL MCH (25.0-35.0) pg MCHC (31.0-37.0) g/dL RDW (11.5-15.5) % Plt Count (150-450) k/uL MPV Neutrophils % % Lymphocytes % % Monocytes % % Eosinophils % % Basophils % % Neutrophils # (1.3-7.7) k/uL Lymphocytes # (1.0-4.8) k/uL Monocytes # (0-1.0) k/uL Eosinophils # (0-0.7) k/uL Basophils # (0-0.2) k/uL PT (9.0-12.0) sec INR (<1.2) APTT (22.0-30.0) sec D-Dimer (<0.60) mg/L FEU Sodium (137-145) mmol/L Potassium (3.5-5.1) mmol/L Chloride (98-107) mmol/L Carbon Dioxide (22-30) mmol/L Anion Gap mmol/L BUN (7-17) mg/dL Creatinine (0.52-1.04) mg/dL Est GFR (CKD-EPI)AfAm (>60 ml/min/1.73 sqM) Est GFR (CKD-EPI)NonAf (>60 ml/min/1.73 sqM) Glucose (74-99) mg/dL Calcium (8.4-10.2) mg/dL Total Bilirubin (0.2-1.3) mg/dL AST (14-36) U/L ALT (4-34) U/L Alkaline Phosphatase (38-126) U/L Troponin I (0.000-0.034) ng/mL NT-Pro-B Natriuret Pep 572 pg/mL Total Protein (6.3-8.2) g/dL Albumin (3.5-5.0) g/dL - EKG Data -: EKG Interpreted by Me EKG Comments: 12-lead Electrocardiogram Interpretation Note EKG was reviewed and interpreted by myself. 12-lead ECG performed at 1517 is interpreted by me as revealing normal sinus rhythm at a rate of 86 beats per mi nute. Cranks is normal. VT interval is 169 ms, QRS duration is 82 ms, QTc is 410 ms. There were no ST or T wave abnormalities to suggest myocardial ischemia or injury. R wave progression across the precordium was satisfactory. By my interpretation this EKG is non-diagnostic for acute ischemia. No resting EKG available for comparison. Disposition Clinical Impression: Near syncope, Palpitations Disposition: ADMITTED IP TO THIS [facility] Condition: Stable Time of Disposition: 20:00
[2022-09-13] MEDS ORDERED: TRIAMTERENE-HCTZ 37.5-25MG 1 EACH TAB PO PRN (20:36)
[2022-09-13] MEDS ORDERED: polyethylene glycoL 3350 17 GM POWD.PACK PO PRN (20:36)
[2022-09-13] MEDS ORDERED: ALPRAZolam 0.25 MG TAB PO PRN (20:36)
[2022-09-13] MEDS ORDERED: ATORVASTATIN 80 MG TAB PO SCH (21:00)
[2022-09-13] MEDS ORDERED: SODIUM CHLORIDE 0.9% 500 ML 500 ML IV SCH (21:00)
[2022-09-13] MEDS ORDERED: MELATONIN 5 MG TABLET PO SCH (21:00)
[2022-09-13] MEDS: HEPARIN SODIUM,PORCINE/PF 5,000 UNIT/0.5 ML SYRINGE SQ SCH (21:24)
[2022-09-13] MEDS: GLIMEPIRIDE 2 MG TAB PO SCH (21:24)
[2022-09-13] MEDS: IPRATROPIUM BROMIDE 0.06% NASAL SPRAY (15 ML) EA NOSTRIL SCH (21:25)
[2022-09-14 00:06] LABS: Appearance,Urine Clear (Clear); Bacteria,Urine Rare /hpf; Bilirubin,Urine Negative (Negative); Blood,Urine Negative (Negative); Color,Urine Yellow; Glucose,Urine (UA) 1+ (Negative); Hyaline Casts,Urine 1 /lpf (0-2); Ketones,Urine Negative (Negative); Leukocyte Esterase,Urine Trace (Negative); Mucus,Urine Rare /hpf; Nitrite,Urine Negative (Negative); Protein,Urine 1+ (Negative); RBC,Urine 1 /hpf (0-5); Specific Gravity,Urine 1.012 (1.001-1.035); Squamous Epithelial Cell,Urine <1 /hpf (0-4); Urobilinogen,Urine <2.0 mg/dL (<2.0); WBC,Urine 1 /hpf (0-5)
[2022-09-14 06:19] LABS: Glucose,Whole Blood 204 mg/dL (70-110)
[2022-09-14] MEDS: INSULIN ASPART (NovoLOG) 100 UNIT/ML VIAL SQ SCH ×2 (06:44→13:18)
[2022-09-14] MEDS: GLIMEPIRIDE 2 MG TAB PO SCH (06:45)
[2022-09-14] MEDS ORDERED: PANTOPRAZOLE 40 MG TABLET PO SCH (07:30)
[2022-09-14 07:58] VITALS: BP 100/61; PULSE 80; TEMP 98.2
[2022-09-14] MEDS: HEPARIN SODIUM,PORCINE/PF 5,000 UNIT/0.5 ML SYRINGE SQ SCH (08:15)
[2022-09-14] MEDS: IPRATROPIUM BROMIDE 0.06% NASAL SPRAY (15 ML) EA NOSTRIL SCH (08:16)
[2022-09-14 08:41] LABS: Basophils # (A) 0.03 X 10*3/uL (0.00-0.10); Basophils % (A) 0.5 %; Eosinophils # (A) 0.13 X 10*3/uL (0.04-0.35); Eosinophils % (A) 2.1 %; HGB 12.9 g/dL (12.0-15.0); Immature Grans, Automated 0.3 %; Lymphocytes # (A) 1.82 X 10*3/uL (0.90-5.00); Lymphocytes % (A) 29.6 %; MCH 29.2 pg (27.0-32.0); MCHC 32.3 g/dL (32.0-37.0); MCV 90.5 fL (80.0-97.0); Mean Platelet Volume 10.7 fL (9.5-12.2); Monocytes # (A) 0.64 X 10*3/uL (0.20-1.00); Monocytes % (A) 10.4 %; NRBC Per 100 WBC 0 /100 WBCS (0.0-0.0); Neutrophils # (A) 3.51 X 10*3/uL (1.80-7.70); Neutrophils % (A) 57.1 %; Platelet Count 169 X 10*3/uL (140-440); RBC 4.42 X 10*6/uL (4.10-5.20); RDW 14.2 % (11.5-14.5); WBC 6.15 X 10*3/uL (4.50-10.00)
[2022-09-14 08:47] LABS: African American GFR (CKD) 49.1 (60.0-200.0); Anion Gap 11.3 mmol/L (10.00-18.00); BUN/Creat Ratio 14.08 Ratio (12.00-20.00); Blood Urea Nitrogen 16.9 mg/dL (9.0-27.0); Calcium 8.6 mg/dL (8.7-10.3); Carbon Dioxide 20.7 mmol/L (20.0-27.5); Non-African American GFR(CKD) 42.3 (60.0-200.0)
[2022-09-14] MEDS ORDERED: CALCIUM CARBONATE 500 MG CHEWABLE PO SCH (09:00)
[2022-09-14] MEDS ORDERED: CHOLECALCIFEROL 25 MCG (1000 IU) TABLET PO SCH (09:00)
[2022-09-14] MEDS ORDERED: FISH OIL 1400 MG PO SCH (09:00)
[2022-09-14] MEDS ORDERED: MULTIVITAMINS, THERA 1 EACH TAB PO SCH (09:00)
[2022-09-14] MEDS ORDERED: METOPROLOL SUCCINATE (ER) 50 MG TAB.ER.24H PO SCH (09:00)
--- NOTE | 2022-09-14 11:31 | US ---
EXAMINATION TYPE: US kidneys/renal and bladder DATE OF EXAM: 09/14/2022 COMPARISON: 06/18/2022 CLINICAL HISTORY: ckd stage 3. EXAM MEASUREMENTS: Right Kidney: 10.3 x 3.7 x 4.5 cm Left Kidney: 10.3 x 5.1 x 3.7 cm Right Kidney: Thin cortex. Left Kidney: Thin cortex, echogenic sinus, isoechoic parenchyma, suggestive of chronic kidney disease . Bladder: Non-distended, patient voided prior to exam. Bilateral Jets seen: No IMPRESSION: 1. No evidence of obstructive uropathy. 2. Cortical thinning suggestive of medical renal disease.
[2022-09-14 12:30] LABS: Glucose,Whole Blood 276 mg/dL (70-110)
--- NOTE | 2022-09-14 13:03 | P.HPIM ---
History of Present Illness H&P Date: 09/14/22 (Palpitation, hypotension, chest discomfort.) Chief Complaint: Complain of palpitation, near syncopal episode, hypotension History and physical date of service 09/14/[address] Ortiz. Patient seen and evaluated [id number] Patient admitted through the emergency room with the chief complaint: Near syncopal episode in association with palpitation and discomfort of the chest and hypotension. History of present illness Patient with a history of recurrent episodes of near syncopal episode, with the complaining of intermittent palpitation and feeling of the chest discomfort with hypotension with the underlying episodic hypertension. Patient seen in the past by Dr.Krishen RODRIGUEZ barn and property manager and he planned for her in October for for further testing because of her recurrent symptoms i.e. stress test, tilt test, Holter monitor or loop and was arranged in October 2022. Patient has continued to have these to be so it's and brought to the emergency room by her sons private car. Seen in the emergency room evaluated by Dr. Vidal Ferris and admitted on observation status to be seen by cardiology for for further evaluation and investigation. Past medical history: Diabetes mellitus2 on oral hypoglycemic agent fairly controlled History of fluctuation hypertension followed by hypotension. Mild obesity Multiple ALLERGY. Anxiety Family history: , 2 para 2 Review of system: Neuropsychiatry: And anxiety stable Cardiovascular hypertension Pulmonary short of breath with the palpitation. GI no nausea vomiting or diarrhea no dysuria or hematuria Musculoskeletal history of feeling falling down with these episodes. Endocrine diabetes mellitus hypothyroidism. Surgical history she had cholecystectomy and appendectomy surgical. On physical exam: Blood pressure on the low side 100 systolic and will hold on light losartan hydrochlorothiazide. Respiratory rate is normal nonlabored. Head was normocephalic and atraumatic, pupil was equal reactive, conjunctivae was pink sclera nonicteric oropharynx natural teeth Neck supple no JVD no thyromegaly no lymphadenopathy trachea midline. Chest clear to auscultation and percussion no wheezes no rhonchi's Heart: Regular sinus rhythm no dysrhythmia and no chest pain at the time of examination Abdomen: Soft positive bowel sounds no tenderness in the four-quadrant. Extremities no edema and positive pulses Psychiatry stable normal mood Neurologically: No lateralizing sign ambulatory uses a cane with the underlying arthritis of the knee no cranial nerve deficit. Assessment: #1 cardiac arrhythmia intermittent associated with shortness of breath and palpitation of unknown etiology. #2 near syncopal episode #3 history of hypertension #4 currently is on the low side hypotension. #5 hypothyroidism. #6 hyperlipidemia. #6 chronic kidney disease stage III, ultrasound of the kidney bladder and ureter was done indicating thinning of the renal cortex Sara bilaterally with the underlying medical disease Plan #1 reviewed the laboratories with normal troponin. Waiting for cardiology for evaluation and decision for further testing or clearance for discharge. We'll continue her medication at home except we'll hold on the losartan HCTZ. Past Medical History Past Medical History: Cancer, GERD/Reflux, Hyperlipidemia, Hypertension Additional Past Medical History / Comment(s): MIGRAINE HEADACHES, SKIN CANCER History of Any Multi-Drug Resistant Organisms: None Reported Past Surgical History: Cholecystectomy, Hysterectomy, Tonsillectomy Additional Past Surgical History / Comment(s): CATARACT WITH LENS IMPLANTS- BILATERAL, BILATERAL EYE LID SURGERY, LESION REMOVED FROM LEFT ARM Past Anesthesia/Blood Transfusion Reactions: Postoperative Nausea & Vomiting (PONV) Past Psychological History: Anxiety, Depression Smoking Status: Never smoker Past Alcohol Use History: None Reported Past Drug Use History: None Reported - Past Family History Mother Family Medical History: No Reported History Medications and Allergies Home Medications Medication Instructions Recorded Confirmed Type ALPRAZolam [Xanax] 0.25 mg PO BID PRN 06/15/20 09/13/22 History Aspirin 81 mg PO W/SUPPER 06/15/20 09/13/22 History Cholecalciferol [Vitamin D3 (25 50 mcg PO DAILY 06/15/20 09/13/22 History Mcg = 1000 Iu)] Glimepiride [Amaryl] 2 mg PO BID-W/MEALS 06/15/20 09/13/22 History Melatonin [Melatonin ER] 10 mg PO HS 06/15/20 09/13/22 History Metoprolol Succinate (ER) [Toprol 50 mg PO DAILY 06/15/20 09/13/22 History Xl] Naproxen Sodium [Aleve] 220 mg PO Q12H PRN 06/15/20 09/13/22 History Pantoprazole Sodium [Protonix] 40 mg PO BID-W/MEALS 06/15/20 09/13/22 History Triamterene-Hctz 37.5-25Mg 0.5 tab PO DAILY PRN 06/15/20 09/13/22 History [Maxzide 37.5-25] polyethylene glycoL 3350 [Miralax] 17 gm PO DAILY PRN 06/15/20 09/13/22 History Calcium Carbonate [Calcium] 600 mg PO DAILY 09/13/22 09/13/22 History Fish Oil 1400mg 1 cap PO DAILY 09/13/22 09/13/22 History Ipratropium [place] [Ipratropium 1 spray EA NOSTRIL BID 09/13/22 09/13/22 History [place] 0.03%] Multivit-Min/FA/Lycopen/Lutein 1 tab PO DAILY 09/13/22 09/13/22 History [Centrum Silver Tablet] Rosuvastatin Calcium [Crestor] 40 mg PO HS 09/13/22 09/13/22 History Allergies Allergy/AdvReac Type Severity Reaction Status Date / Time amoxicillin [From Augmentin] Allergy Diarrhea Verified 09/13/22 20:19 clavulanic acid Allergy Diarrhea Verified 09/13/22 20:19 [From Augmentin] fenofibrate Allergy Nausea, Verified 09/13/22 20:19 HEADACHE linagliptin [From Tradjenta] Allergy Itching Verified 09/13/22 20:19 metformin [From Janumet] Allergy DIZZY Verified 09/13/22 20:19 FEELING" sitagliptin [From Januvia] Allergy DIZZY Verified 09/13/22 20:19 FEELING Sulfa (Sulfonamide Allergy Swelling Verified 09/13/22 20:19 Antibiotics) telmisartan [From Micardis] Allergy DIZZY Verified 09/13/22 20:19 Physical Exam Vitals: Vital Signs Temp Pulse Pulse Pulse Resp BP BP 09/14/22 08:00 80 16 09/14/22 07:50 98.2 F 80 16 100/61 09/14/22 00:42 97.9 F 82 16 107/66 09/13/22 22:59 97.6 F 80 16 137/73 09/13/22 19:37 88 88 16 134/77 09/13/22 13:36 98.5 F 103 H 20 144/90 Pulse Ox 09/14/22 08:00 09/14/22 07:50 95 09/14/22 00:42 96 09/13/22 22:59 100 09/13/22 19:37 98 09/13/22 13:36 99 Intake and Output 09/13/22 09/14/22 09/14/22 22:59 06:59 14:59 Intake Total 250 Balance 250 Intake: Oral 250 Other: Voiding Method Toilet Toilet # Voids 1 Weight 81.647 kg Results CBC & Chem 7: 09/14/22 06:36 09/14/22 06:36 Labs: Abnormal Lab Results - Last 24 Hours (Table) 09/13/22 09/13/22 09/13/22 Range/Units 15:25 18:58 18:58 D-Dimer 0.70 H (<0.60) mg/L FEU Chloride 111 H (98-107) mmol/L Carbon Dioxide 19 L (22-30) mmol/L BUN 20 H (7-17) mg/dL Creatinine 1.07 H (0.52-1.04) mg/dL Est GFR (CKD-EPI)AfAm (60.0-200.0) Est GFR (CKD-EPI)NonAf (60.0-200.0) Glucose 265 H (74-99) mg/dL POC Glucose (mg/dL) (70-110) mg/dL Hemoglobin A1c (0.0-6.0) % Calcium (8.7-10.3) mg/dL Urine Protein 1+ H (Negative) Urine Glucose (UA) 1+ H (Negative) Ur Leukocyte Esterase Trace H (Negative) Urine Bacteria Rare H (None) /hpf Urine Mucus Rare H (None) /hpf 09/13/22 09/14/22 09/14/22 Range/Units 21:50 06:18 06:36 D-Dimer (<0.60) mg/L FEU Chloride 111 H (98-107) mmol/L Carbon Dioxide (22-30) mmol/L BUN (7-17) mg/dL Creatinine (0.52-1.04) mg/dL Est GFR (CKD-EPI)AfAm 49.1 L (60.0-200.0) Est GFR (CKD-EPI)NonAf 42.3 L (60.0-200.0) Glucose 214 H (74-99) mg/dL POC Glucose (mg/dL) 204 H (70-110) mg/dL Hemoglobin A1c 7.2 H (0.0-6.0) % Calcium 8.6 L (8.7-10.3) mg/dL Urine Protein (Negative) Urine Glucose (UA) (Negative) Ur Leukocyte Esterase (Negative) Urine Bacteria (None) /hpf Urine Mucus (None) /hpf 09/14/22 Range/Units 12:28 D-Dimer (<0.60) mg/L FEU Chloride (98-107) mmol/L Carbon Dioxide (22-30) mmol/L BUN (7-17) mg/dL Creatinine (0.52-1.04) mg/dL Est GFR (CKD-EPI)AfAm (60.0-200.0) Est GFR (CKD-EPI)NonAf (60.0-200.0) Glucose (74-99) mg/dL POC Glucose (mg/dL) 276 H (70-110) mg/dL Hemoglobin A1c (0.0-6.0) % Calcium (8.7-10.3) mg/dL Urine Protein (Negative) Urine Glucose (UA) (Negative) Ur Leukocyte Esterase (Negative) Urine Bacteria (None) /hpf Urine Mucus (None) /hpf
--- NOTE | 2022-09-14 13:15 | P.DS ---
Providers Date of admission: 09/13/22 20:09 Expected date of discharge: 09/14/22 Attending physician: Everett Ortiz Consults: 09/13/22 20:09 Consult Physician Routine Consulting Provider: [facility] Consult Reason/Comments: palpatations, near syncope Do you want consulting provider notified?: Yes, Notify in am Primary care physician: Everett Ortiz This is dictation on the discharge summary. Date of service 09/14/[address] Ortiz Patient seen [id number] Admission and discharge on the same day 09/14/2022 Admission diagnosis #1 cardiac dysrhythmia #2 near syncopal episode secondary to the arrhythmia #3 hypotension #4 chronic kidney disease stage III #5 palpitation #6 history of an anxiety disorder. Discharge diagnosis: Cleared by cardiology for discharge to be followed as outpatient #1 palpitation #2 cardiac dysrhythmia #3 hypotension #4 near syncopal episode. #5 chronic kidney disease stage III #6 history of hypothyroidism stable #7 and anxiety disorder. Hospital course: Patient seen evaluated [id number] was waiting for the cardiology to see her When the cardiology saw her and decided to be discharged to follow as outpatient I could not find his note on the computer. But the cleared her up for discharge the DEVEN Davila date: Me indicating the clearance of the cardiology for discharge We withheld the losartan hydrochlorothiazide And will see her next week in the office for follow-up as well as the cardiology follow-up. Cardiology note On discharge: Patient stable general condition Conscious alert oriented 3 ambulatory Physical exam negative no new event, school lunch monitor was normal sinus rhythm. And EKG normal sinus rhythm and the laboratories was normal troponin chemistry indicating chronic kidney disease and ultrasound was done on this hos pitalization of the kidney and bladder and ureter indicating thinning of the cortex of the renal. Neck was supple no JVD no thyromegaly no lymphadenopathy Chest was clear to auscultation percussion Heart regular sinus rhythm seen by cardiology Abdomen is soft positive bowel sounds Extremities no edema and positive pulses Psychiatry stable Neurologically stable Assessment stable for discharge today to follow with the recommendation of the cardiology and follow-up as Dr. Angel tony as outpatient. And follow-up was Dr. Bhakta general road foreman. Reviewed her medication and patient will be continuing home medication except and losartan hydrochlorothiazide. Patient Condition at Discharge: Stable Plan - Discharge Summary New Discharge Prescriptions: No Action polyethylene glycoL 3350 [Miralax] 17 gm PO DAILY PRN PRN Reason: Constipation Naproxen Sodium [Aleve] 220 mg PO Q12H PRN PRN Reason: Pain Melatonin [Melatonin ER] 10 mg PO HS Cholecalciferol [Vitamin D3 (25 Mcg = 1000 Iu)] 50 mcg PO DAILY Aspirin 81 mg PO W/SUPPER ALPRAZolam [Xanax] 0.25 mg PO BID PRN PRN Reason: HEADACHE Pantoprazole Sodium [Protonix] 40 mg PO BID-W/MEALS Glimepiride [Amaryl] 2 mg PO BID-W/MEALS Triamterene-Hctz 37.5-25Mg [Maxzide 37.5-25] 0.5 tab PO DAILY PRN PRN Reason: Edema Metoprolol Succinate (ER) [Toprol Xl] 50 mg PO DAILY Calcium Carbonate [Calcium] 600 mg PO DAILY Rosuvastatin Calcium [Crestor] 40 mg PO HS Fish Oil 1400mg 1 cap PO DAILY Multivit-Min/FA/Lycopen/Lutein [Centrum Silver Tablet] 1 tab PO DAILY Ipratropium [place] [Ipratropium [place] 0.03%] 1 spray EA NOSTRIL BID Discharge Medication List ALPRAZolam [Xanax] 0.25 mg PO BID PRN 06/15/20 [History] Aspirin 81 mg PO W/SUPPER 06/15/20 [History] Cholecalciferol [Vitamin D3 (25 Mcg = 1000 Iu)] 50 mcg PO DAILY 06/15/20 [History] Glimepiride [Amaryl] 2 mg PO BID-W/MEALS 06/15/20 [History] Melatonin [Melatonin ER] 10 mg PO HS 06/15/20 [History] Metoprolol Succinate (ER) [Toprol Xl] 50 mg PO DAILY 06/15/20 [History] Naproxen Sodium [Aleve] 220 mg PO Q12H PRN 06/15/20 [History] Pantoprazole Sodium [Protonix] 40 mg PO BID-W/MEALS 06/15/20 [History] Triamterene-Hctz 37.5-25Mg [Maxzide 37.5-25] 0.5 tab PO DAILY PRN 06/15/20 [History] polyethylene glycoL 3350 [Miralax] 17 gm PO DAILY PRN 06/15/20 [History] Calcium Carbonate [Calcium] 600 mg PO DAILY 09/13/22 [History] Fish Oil 1400mg 1 cap PO DAILY 09/13/22 [History] Ipratropium [place] [Ipratropium [place] 0.03%] 1 spray EA NOSTRIL BID 09/13/22 [History] Multivit-Min/FA/Lycopen/Lutein [Centrum Silver Tablet] 1 tab PO DAILY 09/13/22 [History] Rosuvastatin Calcium [Crestor] 40 mg PO HS 09/13/22 [History] Follow up Appointment(s)/Referral(s): Everett Ortiz MD [Primary Care Provider] - 1-2 days
[2022-09-14] MEDS ORDERED: ASPIRIN 81 MG PO SCH (17:30)
--- NOTE | 2022-09-14 22:25 | CONS ---
CONSULTATION CHIEF COMPLAINT: Palpitations. Lesvia is an 81-year-old lady with history of hypertension, GERD, who presented to hospital with symptoms of lightheadedness, dizziness and palpitations. She has had these symptoms for a while and had been evaluated by Dr. Reagan in the office and workup is currently in progress. Since she was still having these symptoms, she said "let me go to the hospital," it is how she came in. There has not been any change in her symptoms than gotten any worse. Since being admitted to hospital, she has done well; had 3 sets of troponins that are all within normal limits. BNP is normal. Hemoglobin is normal. PAST MEDICAL HISTORY: Significant for palpitations, hypertension, COPD, and dyslipidemia. CURRENT MEDICATIONS: Include: 1. Ipratropium. 2. Maxzide. 3. Crestor. 4. Protonix. 5. Toprol. 6. Melatonin. 7. Amaryl. 8. Xanax. ALLERGIES: She has multiple drug allergies. They are charted and I reviewed them. FAMILY HISTORY: Negative for premature coronary artery disease. SOCIAL HISTORY: Negative for smoking, EtOH abuse, or drug abuse. REVIEW OF SYSTEMS: review of systems has been performed, pertinent as documented. PHYSICAL EXAMINATION: GENERAL: Comfortable at rest. VITAL SIGNS: Stable. NECK: There is no jugular venous distention. Carotid upstroke is normal. There is no bruit. CHEST: Reveals good air entry bilaterally. HEART: Reveals first and second heart sounds. No gallop. No murmur. ABDOMEN: Soft, nontender. EXTREMITIES: Did not reveal any edema. Peripheral pulses are felt. ASSESSMENT AND PLAN: Palpitations and dizziness, exact etiology is unclear, so far the workup is negative. No documented cardiac arrhythmia at this stage. EKG showed sinus rhythm with evidence of possible prior inferior wall myocardial infarction. She did not have myocardial infarction. We should suggest a cardiac cath that we will arrange for. She will follow up with Dr. Reagan in the office. MMODL / IJN: [id number] /
== END 2022-09-14 14:20 | disposition home or self-care (01) ==
LOC: EC 13:16 → 6NMEDSUR 20:09
PROVIDERS: ADMIT Internal Medicine; ATTEND Internal Medicine
DX: R00.2 Palpitations (principal); R42 Dizziness and giddiness; I95.9 Hypotension, unspecified; I12.9 Hypertensive chronic kidney disease with stage 1 through stage 4 chronic kidney disease, or unspecified chronic kidney disease; N18.30 Chronic kidney disease, stage 3 unspecified; K21.9 Gastro-esophageal reflux disease without esophagitis; G43.909 Migraine, unspecified, not intractable, without status migrainosus; J44.9 Chronic obstructive pulmonary disease, unspecified; E78.5 Hyperlipidemia, unspecified; E66.9 Obesity, unspecified; E03.9 Hypothyroidism, unspecified; E11.9 Type 2 diabetes mellitus without complications; F32.A Depression, unspecified; F41.9 Anxiety disorder, unspecified; Z79.84 Long term (current) use of oral hypoglycemic drugs; Z79.82 Long term (current) use of aspirin; Z79.899 Other long term (current) drug therapy; Z88.0 Allergy status to penicillin; Z88.2 Allergy status to sulfonamides; Z88.8 Allergy status to other drugs, medicaments and biological substances; Z85.828 Personal history of other malignant neoplasm of skin; Z90.49 Acquired absence of other specified parts of digestive tract; Z90.710 Acquired absence of both cervix and uterus; Z98.42 Cataract extraction status, left eye; Z98.41 Cataract extraction status, right eye; Z96.1 Presence of intraocular lens; Z98.890 Other specified postprocedural states
CPT/HCPCS: 96372; 99285; 36415; 93005; 85379; 83880; 80053; 80048; 84484 ×2; 85025 ×2; 85610; 85730; 81001; 83036; 71046; 76770; G0378 ×2; J1644

== ENCOUNTER → 2022-11-07 | Day surgery (SDC) | payer MEDICARE ==
[~2022-11-07] MED LIST changes: -LACTATED RINGERS 1,000 ML IV SCH; -LIDOCAINE 1% (10MG/ML) FOR IV START INTRADERMA PRN; +SODIUM CHLORIDE 0.9% 1,000 ML IV SCH
[2022-11-07 09:37] VITALS: BP 174/81; PULSE 84; RESP 16; TEMP 97
[2022-11-07 09:40] LABS: Glucose,Whole Blood 161 mg/dL (70-110)
--- NOTE | 2022-11-07 18:22 | P.EPPROC ---
- EP Procedure Note Electrophysiology Procedure Note: Diagnosis Recurrent syncope Twelve-lead EKG shows sinus rhythm normal VA narrow QRS normal ST segments normal QT interval Tilt table test per protocol Baseline blood pressure 191/91 mmHg Baseline heart rate 76 beats a minute Patient was tilted upright at an angle of 70 per protocol There was an immediate drop in her blood pressure 258/75 mmHg with a mild increase in heart rate 86 beats a minute Thereafter there was a gradual progressive decline in the blood pressure. Lowest blood pressure was 117/71 mmHg There was a mild increase in heart rate. Peak heart rate was 107 beats a minute When she was laid supine blood pressure immediately increased 251/78 mmHg and a heart rate normalized to 73 beats a minute Impression Normal twelve-lead EKG Baseline supine hypertension Orthostatic hypotension syndrome When her blood pressure was 117/82 mmHg she felt heart with a tingling sensation in her short of breath and did not want to stand up any further
== END ==
LOC: CATHEP 08:50
PROVIDERS: ATTEND Internal Medicine Clinical Cardiac Electrophysiology
DX: R55 Syncope and collapse (principal); I10 Essential (primary) hypertension; E11.9 Type 2 diabetes mellitus without complications; E78.5 Hyperlipidemia, unspecified; Z82.49 Family history of ischemic heart disease and other diseases of the circulatory system; Z79.899 Other long term (current) drug therapy
CPT/HCPCS: 93660

== ENCOUNTER → 2023-04-11 | Outpatient (CLI) | payer MEDICARE ==
[2023-04-11 20:54] LABS: BUN/Creat Ratio 17.46 Ratio (12.00-20.00); Blood Urea Nitrogen 22.7 mg/dL (9.0-27.0); Calcium 9.7 mg/dL (8.7-10.3); Carbon Dioxide 21.9 mmol/L (21.6-31.8); Chloride 106 mmol/L (96-109); Glucose 172 mg/dL (70-110); Magnesium 2.2 mg/dL (1.5-2.4); Phosphorus 3.7 mg/dL (2.4-5.1); Potassium 3.9 mmol/L (3.5-5.5); Sodium 142 mmol/L (135-145); T4, Free (Free Thyroxine) 1.12 ng/dL (0.80-1.80)
== END | disposition home or self-care (01) ==
LOC: LABWHC1 12:57
PROVIDERS: ATTEND Internal Medicine
DX: E03.9 Hypothyroidism, unspecified (principal)
CPT/HCPCS: 36415; 80048; 82607; 82746; 83036; 83735; 84100; 84439; 84443

== ENCOUNTER → 2023-07-25 | Outpatient (CLI) | payer MEDICARE ==
[2023-07-25 19:33] LABS: Basophils # (A) 0.04 X 10*3/uL (0.00-0.10); Basophils % (A) 0.7 %; Eosinophils # (A) 0.07 X 10*3/uL (0.04-0.35); Eosinophils % (A) 1.2 %; HGB 15.6 d/dL (12.0-15.0); Lymphocytes # (A) 2.09 X 10*3/uL (0.90-5.00); Lymphocytes % (A) 35.6 %; MCH 28.7 pg (27.0-32.0); MCHC 30.6 d/dL (32.0-37.0); MCV 93.8 FL (80.0-97.0); Mean Platelet Volume 11.2 FL (9.5-12.2); Monocytes # (A) 0.41 X 10*3/uL (0.20-1.00); NRBC Per 100 WBC 0 X 10*3/uL (0.00-0.01); Neutrophils # (A) 3.22 X 10*3/uL (1.80-7.70); Neutrophils % (A) 54.8 %; Platelet Count 161 X 10*3/uL (140-440); RBC 5.44 X 10*6/uL (4.10-5.20); RDW 13.9 % (11.5-14.5); WBC 5.87 X 10*3/uL (4.50-10.00)
[2023-07-25 20:19] LABS: Erythrocyte Sedimentation Rate 7 mm/Hr (0-30)
[2023-07-26 05:21] LABS: Appearance,Urine Clear (Clear); Bilirubin,Urine Negative (Negative); Blood,Urine Large (Negative); Color,Urine Yellow (Yellow); Ketones,Urine Negative (Negative); Nitrite,Urine Negative (Negative); Specific Gravity,Urine 1.017 (1.001-1.030); Urobilinogen,Urine 0.2 E.U./DL
[2023-07-26 05:59] LABS: Bacteria,Urine None Seen (None Seen); Calcium Oxalate Crystals,Urine Present (None Seen)
[2023-07-26 06:01] LABS: Anti-DNA, DS unit <1.0 IU/mL; DNA Double-Stranded Negative (Negative)
[2023-07-26 06:07] LABS: % Iron Saturation 18.53 (12.00-45.00); C Reactive Protein <0.30 mg/dL (0.00-0.80); Creatine Kinase 47 U/L (26-186); Iron 68 UG/DL (50-170); Magnesium 2.2 mg/dL (1.5-2.4); Phosphorus 3.4 mg/dL (2.4-5.1); Total Iron Binding Capacity 367 UG/DL (228-460); Uric Acid 2.9 mg/dL (2.9-7.7)
[2023-07-26 06:08] LABS: T4, Free (Free Thyroxine) 1.07 ng/dL (0.80-1.80)
[2023-07-26 06:14] LABS: ALT 34 U/L (8-44); AST 27 U/L (13-35); Albumin 4.7 d/dL (3.8-4.9); Albumin/Globulin Ratio 1.81 Ratio (1.60-3.17); Alkaline Phosphatase 78 U/L (41-126); BUN/Creat Ratio 15.31 Ratio (12.00-20.00); Blood Urea Nitrogen 19.9 mg/dL (9.0-27.0); Calcium 10.2 mg/dL (8.7-10.3); Chloride 107 mmol/L (96-109); Chol/HDL Ratio 2.72 Ratio; Globulin 2.6 d/dL (1.6-3.3); Glucose 171 mg/dL (70-110); Potassium 4.8 mmol/L (3.5-5.5); Sodium 145 mmol/L (135-145); Total Bilirubin 1.1 mg/dL (0.3-1.2); Total Protein 7.3 d/dL (6.2-8.2)
[2023-07-26 06:17] LABS: LDL Cholesterol,Calculated 34.5 mg/dL (0.0-131.0)
== END | disposition home or self-care (01) ==
LOC: LABWHC1 13:01
PROVIDERS: ATTEND Internal Medicine
DX: Z00.00 Encounter for general adult medical examination without abnormal findings (principal); E87.8 Other disorders of electrolyte and fluid balance, not elsewhere classified; D63.1 Anemia in chronic kidney disease; E78.5 Hyperlipidemia, unspecified; E03.9 Hypothyroidism, unspecified; M81.0 Age-related osteoporosis without current pathological fracture; E55.9 Vitamin D deficiency, unspecified; M35.9 Systemic involvement of connective tissue, unspecified; M10.9 Gout, unspecified; N18.30 Chronic kidney disease, stage 3 unspecified; R80.9 Proteinuria, unspecified
CPT/HCPCS: 36415; 80053; 80061; 81001; 82306; 82550; 82728; 83540; 83550; 83735; 84100; 84439; 84443; 84550; 85025; 85652; 86038; 86039; 86140; 86225; 87086

== ENCOUNTER → 2024-12-20 | Outpatient (CLI) | payer MEDICARE ==
[2024-12-20 13:47] LABS: Creatinine,Urine Random 284.7 mg/dL; Protein/Creatinine Ratio,Urine 0.681
--- NOTE | 2024-12-20 14:22 | XR ---
EXAMINATION TYPE: XR chest 2V DATE OF EXAM: 12/20/2024 CLINICAL INDICATION: Female, 84 years old with history of N18.30 E11.65 R80.9, TECHNIQUE: Frontal and lateral views of the chest are obtained. COMPARISON: Prior chest x-ray September 13 2022 FINDINGS: There is no focal air space opacity, pleural effusion, or pneumothorax seen. The cardiac silhouette size is within normal limits. The osseous structures are intact. Cholecystectomy clips a re redemonstrated. IMPRESSION: No acute process. No significant change from prior. [facility], , 12/20/2024 2:20 PM
--- NOTE | 2024-12-20 14:23 | XR ---
EXAMINATION TYPE: XR sacroiliac joint comp BILAT DATE OF EXAM: 12/20/2024 1:32 PM COMPARISON: None. CLINICAL INDICATION: Female, 84 years old with history of N18.30 E11.65 R80.9; PHH, pain TECHNIQUE: The sacroiliac joints were examined in a frontal and oblique projections. FINDINGS: There is no evidence of fracture or dislocation. There is no soft tissue abnormality. No a bnormal calcifications are present. Multilevel mild degenerative changes of the lower spine. Mild deg eneration narrowing of the sacroiliac joints bilaterally without significant osteophyte formation. IMPRESSION: As Above. [facility], , 12/20/2024 2:21 PM
[2024-12-20 15:27] LABS: BUN/Creat Ratio 13.64 Ratio (12.00-20.00); Blood Urea Nitrogen 19.1 mg/dL (9.0-27.0); Calcium 9.2 mg/dL (8.7-10.3); Carbon Dioxide 21.7 mmol/L (21.6-31.8); Chloride 110 mmol/L (96-109); Glucose 200 mg/dL (70-110); Sodium 144 mmol/L (135-145)
== END | disposition home or self-care (01) ==
LOC: LABWHC1 12:31
PROVIDERS: ATTEND Internal Medicine
DX: E11.65 Type 2 diabetes mellitus with hyperglycemia (principal); E11.22 Type 2 diabetes mellitus with diabetic chronic kidney disease; N18.30 Chronic kidney disease, stage 3 unspecified; M19.90 Unspecified osteoarthritis, unspecified site; R80.9 Proteinuria, unspecified; R06.02 Shortness of breath; R52 Pain, unspecified
CPT/HCPCS: 36415; 71046; 72202; 80048; 82043; 82570; 83036; 84156; 87086